=== PATIENT | female | born 1930 | race Caucasian/White ===

== ENCOUNTER 2021-04-03 08:23 | Outpatient (CLI) | payer OTHER ==
[~2021-04-03 08:23] MED LIST: ANTIVERT25 M1; BENTYL10 MG/ML; CLARITIN10 MG; LOSARTAN POTASS25 MG; MELOXICAM15 MG; RESTORIL15 M1; VITAMIN D2000 UNI1; ZANTAC300 MG; ZOCOR40 MG
== END 2021-04-03 08:28 | disposition home or self-care (01) ==
LOC: RX STUDY 08:23
PROVIDERS: ATTEND Internal Medicine Gastroenterology
DX: R13.14 Dysphagia, pharyngoesophageal phase (principal); K30 Functional dyspepsia